=== PATIENT | female | born 1985 | race Caucasian/White ===

== ENCOUNTER 2018-06-22 18:41 | Emergency (ER) | payer MEDICAID ==
[~2018-06-22] VITALS: Ht 180.3 cm; Wt 81.6 kg
[2018-06-22 19:20] VITALS: BP 138/86
--- NOTE | 2018-06-22 19:31 | Emergency Room Report ---
History of Present Illness General Chief Complaint: Behavioral Complaint Source: Patient, Medical Record, Law Enforcement Present Illness HPI Patient 32-year-old female who presented after reportedly having increased suicidal ideation. Patient reportedly was recently placed on a psychiatric hold and released from [facility] The patient reportedly stated she wanted to stab herself a knife. The patient was placed on a psychiatric hold by [employer].Patient denies any fever.She denies any current medical complaints. Allergies: Coded Allergies: No Known Allergies (Unverified , 06/22/18) Patient History Past Medical History: see triage record Last Menstrual Period: 3 weeks ago Reviewed Nursing Documentation: PMH: Agreed; PSxH: Agreed Nursing Documentation-PMH Past Medical History: No History, Except For History Of Psychiatric Problem: Yes - Bipolar, depression, Schizophrenia Review of Systems All Other Systems: negative except mentioned in HPI Physical Exam Vital Signs Date Time Temp Pulse Resp B/P (MAP) Pulse Ox O2 Delivery O2 Flow Rate FiO2 06/22/18 18:53 97.3 74 14 138/86 98 Room Air General Appearance: well appearing, no apparent distress, alert, GCS 15, obese Head: normocephalic, atraumatic ENT: hearing grossly normal, normal voice Neck: full range of motion, supple Respiratory: no respiratory distress, speaking full sentences Cardiovascular #1: normal inspection, regular rate, rhythm, no edema, no gallop Genitourinary: no CVA tenderness Musculoskeletal: normal inspection, no calf tenderness Neurologic: normal inspection, alert, oriented x3, responsive, normal gait Psychiatric: mood/affect normal Skin: no rash Medical Decision Making Diagnostic Impression: Primary Impression: Psychosis Additional Impression: Suicidal ideation ER Course Patient presented for suicidal thoughts. Differential diagnoses include substance abuse, psychosis, bipolar disorder, depression, malingering Patient is laboratory testing is currently pending but I anticipate the patient will be cleared for psychiatric placement. Patient will likely require psychiatric transferred due to a 5150 hold. Labs Test 06/22/18 22:50 Urine Color Yellow Urine Appearance Clear Urine pH 5 (4.5-8.0) Urine Specific [place] 1.025 (1.005-1.035) Urine Protein 2+ (NEGATIVE) Urine Glucose (UA) Negative (NEGATIVE) Urine Ketones 1+ (NEGATIVE) Urine Blood Negative (NEGATIVE) Urine Nitrite Negative (NEGATIVE) Urine Bilirubin Negative (NEGATIVE) Urine Urobilinogen 4 MG/DL (0.0-1.0) Urine Leukocyte Esterase 2+ (NEGATIVE) Urine RBC 2-4 /HPF (0 - 2) Urine WBC 5-10 /HPF (0 - 2) Urine Squamous Epithelial Cells Few /LPF (NONE/OCC) Urine Bacteria Moderate /HPF (NONE) Urine HCG, Qualitative Negative (NEGATIVE) Urine Opiates Screen Negative (NEGATIVE) Urine Barbiturates Screen Negative (NEGATIVE) Phencyclidine (PCP) Screen Negative (NEGATIVE) Urine Amphetamines Screen Positive (NEGATIVE) Urine Benzodiazepines Screen Positive (NEGATIVE) Urine Cocaine Screen Positive (NEGATIVE) Urine Marijuana (THC) Screen Positive (NEGATIVE) Last Vital Signs Date Time Temp Pulse Resp B/P (MAP) Pulse Ox O2 Delivery O2 Flow Rate FiO2 06/22/18 18:53 97.3 74 14 138/86 98 Room Air Status: improved Disposition: XFER TO PSYCH HOSP/UNIT Condition: Stable Rene Mariano MD Jun 22, 2018 19:31
[2018-06-22 23:00] VITALS: BP 130/84
[2018-06-22 23:02] LABS: APPEARANCE,URINE CLEAR; BILIRUBIN, URINE NEGATIVE (NEGATIVE); GLUCOSE, URINE (UA) NEGATIVE (NEGATIVE); KETONES,URINE 1+ (NEGATIVE); LEUKOCYTE ESTERASE ,URINE 2+ (NEGATIVE); NITRITE,URINE NEGATIVE (NEGATIVE); PH,URINE 5 (4.5-8.0); PROTEIN,URINE 2+ (NEGATIVE); UROBILINOGEN,URINE 4 MG/DL (0.0-1.0)
[2018-06-22 23:03] LABS: COLOR,URINE YELLOW
[2018-06-23 01:30] VITALS: BP 125/75
[2018-06-23 05:48] VITALS: BP 130/80
[2018-06-23 06:58] VITALS: BP 130/80
== END 2018-06-23 06:55 ==
LOC: EDBD 18:41 → EMR 19:42
DX: R45.851 Suicidal ideations (principal); F29 Unspecified psychosis not due to a substance or known physiological condition; F31.9 Bipolar disorder, unspecified; F20.9 Schizophrenia, unspecified
CPT/HCPCS: 80307; 81003; 81025; 87086; 99285